=== PATIENT | female | born 1990 ===

== ENCOUNTER 2017-10-05 10:53 | Emergency (ER) | payer MEDICAID ==
[2017-10-05 11:17] VITALS: O2SAT 97
[2017-10-05 11:18] VITALS: BMI 28.7
[2017-10-05] MEDS ORDERED: Sodium Chloride 0.9% 1,000 ML IV SCH (12:15)
[2017-10-05 12:42] LABS: SQUAMOUS EPITHIAL 2 /hpf (0-5); URINE BILIRUBIN NEGATIVE (NEGATIVE); URINE BLOOD SMALL (NEGATIVE); URINE CLARITY SLIGHTY-CLOUDY (Clear); URINE COLOR YELLOW (YELLOW); URINE GLUCOSE (UA) NEG (Normal); URINE LEUKOCYTE ESTERASE NEG Leu/uL (Negative); URINE NITRATE NEGATIVE (NEGATIVE); URINE PROTEIN NEGATIVE (NEGATIVE)
--- NOTE | 2017-10-05 13:08 | ED PDOC ---
HPI: Female Pain Time Seen by Provider: 10/05/17 11:27 Chief Complaint (Nursing): Female Genitourinary Chief Complaint (Provider): Female Genitourinary History Per: Patient History/Exam Limitations: no limitations Onset/Duration Of Symptoms: Days (x 4) Current Symptoms Are (Timing): Still Present Additional Complaint(s): 26 year old female (5 weeks; A3) presents to the ED complaining of abdominal cramping, onset 4 days ago. She says it "feels like pressure". LNMP was mid-September. Her OBG is Dr. Lin. Reports urinary frequency and denies nausea, vomiting and diarrhea. PMD: none : 5 Para: 1 Miscarriage: 3 Past Medical History Reviewed: Historical Data, Nursing Documentation, Vital Signs Vital Signs: Last Vital Signs Temp 98.6 F 10/05/17 11:15 Pulse 109 H 10/05/17 11:15 Resp 17 10/05/17 11:15 BP 123/62 10/05/17 11:15 Pulse Ox 97 10/05/17 11:15 - Medical History PMH: No Chronic Diseases Denies: Depression - Surgical History Surgical History: No Surg Hx - Family History Family History: States: Unknown Family Hx - Home Medications Home Medications: Ambulatory Orders Medication Instructions Recorded No Known Home Med 08/18/12 Naproxen [Naprosyn] 500 mg PO BID PRN #15 tablet 11/25/16 traMADol [Ultram] 50 mg PO BID PRN #10 tab 11/25/16 - Allergies Allergies/Adverse Reactions: Allergies Allergy/AdvReac Type Severity Reaction Status Date / Time cashew nut Allergy Severe ANAPHYLAXIS Verified 11/25/16 09:46 Review of Systems Gastrointestinal: Positive for: Abdominal Pain (cramping). Negative for: Nausea , Vomiting, Diarrhea Genitourinary Female: Positive for: Frequency Physical Exam - Reviewed Nursing Documentation Reviewed: Yes Vital Signs Reviewed: Yes - Physical Exam Appears: Positive for: Non-toxic, No Acute Distress Head Exam: Positive for: ATRAUMATIC, NORMOCEPHALIC Skin: Positive for: Normal Color, Warm, Dry Eye Exam: Positive for: EOMI, Normal appearance, PERRL ENT: Positive for: Normal ENT Inspection Neck: Positive for: Normal, Painless ROM Cardiovascular/Chest: Positive for: Regular Rate, Rhythm Respiratory: Positive for: CNT, Normal Breath Sounds Gastrointestinal/Abdominal: Positive for: Tenderness (mild suprapubic), Guarding (mild). Negative for: Rebound, Other (McBurney's) Pelvic Exam: Positive for: External Exam Normal, Speculum Exam Normal, Other ( environmental technical officer ED RN Dotty) Back: Positive for: Normal Inspection Extremity: Positive for: Normal ROM Neurologic/Psych: Positive for: Alert, Oriented - Laboratory Results Result Diagrams: 10/05/17 12:51 10/05/17 12:51 - ECG O2 Sat by Pulse Oximetry: 97 (RA) Pulse Ox Interpretation: Normal Medical Decision Making Medical Decision Making: Time: 12:03 Rule out ectopic , early labor cramps, vs threatened Initial Plan: --Blood type and screen --BMP --Beta HCG --CBC --Chylamdia --Tylenol 650 mg PO --Normal Saline 250 mls/ hr IV --Transvag US TV SONO Creator : DR. Mix, Marck HARTMANN IMPRESSION: No visible it intrauterine gestation or products of conception. Thickened heterogeneous endometrium. Bilateral complex adnexal cysts. Time: 15:30 --patient has no abdominal pain. Reevaluation shows abdomen is soft and non tender. No vaginal bleeding in the ER. Follow up with [facility]ELOP[facility] and return to the ED in two days for repeat Beta-HCG. Scribe Attestation: Documented by Giovanna Comer, acting as a scribe for Andrew Martinez Scribe Attestation: All medical record entries made by the Scribe were at my direction and personally dictated by me. I have reviewed the chart and agree that the record accurately reflects my personal performance of the history, physical exam, medical decision making, and the department course for this patient. I have also personally directed, reviewed, and agree with the discharge instructions and disposition. Disposition - Clinical Impression Clinical Impression: , Threatened - Patient ED Disposition Is Patient to be Admitted: No - Disposition Referrals: Anna Mckeon MD [Staff Provider] - Disposition: Routine/Home Disposition Time: 15:30 Condition: IMPROVED Additional Instructions: Ms Brothers, thank you for letting us take care of you today. Your provider was Dr. Rodriguez. You were treated for Threatened . The emergency medical care you received today was directed at your acute symptoms. If you were prescribed any medication, please fill it and take as directed. It may take several days for your symptoms to resolve. Return to the Emergency Department if your symptoms worsen, do not improve, or if you have any other problems. You need repeat blood work in 2 days. Return to the ED if symptoms worsen, vaginal bleeding or any other concern. Please contact your doctor or call one of the physicians/clinics you have been referred to that are listed on the Patient Visit Information form that is included in your discharge packet. Bring any paperwork you were given at discharge with you along with any medications you are taking to your follow up visit. Our treatment cannot replace ongoing medical care by a primary care provider (PCP) outside of the emergency department. Thank you for allowing the [facility] team to be part of your care today. If you had an X-Ray or CT scan: A Radiologist will review the ED reading if any change in treatment is needed we will contact you. If you had a blood, urine, or wound culture: It will take several days for the results, if any change in treatment is needed we will contact you. If you had an STI test: It will take 48 hours for the results. Please call after 1 week if you have not heard back. Instructions: Threatened Miscarriage (ED) Forms: [employer] ([employer]), [facility] ED School/Work Excuse
[2017-10-05 13:16] LABS: BLOOD UREA NITROGEN 14 mg/dl (7-17); GFR AFRICAN-AMERICAN > 60; GFR NON-AFRICAN AMERICAN > 60
[2017-10-05 13:19] LABS: BASO # 0.1 K/uL (0.0-0.2); BASO % 0.6 % (0.0-2.0); EOS # 0.2 K/uL (0.0-0.7); EOS % 1.9 % (0.0-4.0); HEMOGLOBIN 13.2 g/dL (12.0-16.0); LYMPH % 33.4 % (20.0-40.0); MEAN CELL VOLUME 83.7 fl (81.0-99.0); MEAN CORPUSCULAR HEMOGLOBIN 27.4 pg (27.0-31.0); MEAN CORPUSCULAR HGB CONC 32.7 g/dL (33.0-37.0); MEAN PLATELET VOLUME 9.5 fl (7.2-11.7); MONO # 0.6 K/uL (0.0-0.8); MONO % 6.6 % (0.0-10.0); NEUT # 5.2 K/uL (1.8-7.0); NEUT % 57.5 % (50.0-75.0); NRBC % 0.1 % (0.0-0.0); RBC 4.8 Mil/uL (3.80-5.20); RED CELL DISTRIBUTION WIDTH 13.7 % (11.5-14.5)
[2017-10-05 15:34] VITALS: BP 124/64; PULSE 70; RESP 18; TEMP 98.2
--- NOTE | 2017-10-05 16:24 | US ---
HISTORY: approx 5 weeks preg r/o ectopic Beta HCG results: 767.82 COMPARISON: 09/02/2017 TECHNIQUE: Transvaginal only. Real -time technique with 2D, duplex and color Doppler FINDINGS: UTERUS: Measures 5 x 6.6 x 9 cm. Normal in size and appearance. No fibroid or other mass lesion seen. ENDOMETRIUM: Measures 22.9 mm in diameter. Thickened heterogeneous endometrium without focal abnormality. CERVIX: No cervical abnormality identified. RIGHT OVARY: Measures 1.7 x 3.4 x 3.4 cm. Complex cyst perhaps hemorrhagic containing debris 1.2 x 2.1 cm Normal flow. Simple cyst 2.1 x 1.1 x 2.2 cm LEFT OVARY: Measures 2.7 x 2.4 x 3.4 cm. No solid mass. Normal flow. Complex cyst 1.9 x 1.6 x 1.5 cm FREE FLUID: No significant free fluid noted. OTHER FINDINGS: None. IMPRESSION: No visible it intrauterine gestation or products of conception. Thickened heterogeneous endometrium. Bilateral complex adnexal cysts.
== END 2017-10-05 15:23 | disposition home or self-care (01) ==
LOC: H.ER 10:53
DX: O20.0 Threatened abortion (principal); Z3A.01 Less than 8 weeks gestation of pregnancy
CPT/HCPCS: 76817; 80048; 81003; 81025; 84702; 85025; 86850; 86900; 87491; 87591; 96360; 96361; 99283; J7040

== ENCOUNTER 2017-11-15 20:43 | Emergency (ER) | payer MEDICAID ==
[2017-11-15 20:44] VITALS: BMI 28.7
[2017-11-15 22:16] VITALS: BP 134/78; PULSE 80; RESP 17; TEMP 98; O2SAT 99
--- NOTE | 2017-11-15 23:45 | ED PDOC ---
HPI: Abdomen Time Seen by Provider: 11/15/17 22:19 Chief Complaint (Nursing): Abdominal Pain Chief Complaint (Provider): Pelvic Pain History Per: Patient History/Exam Limitations: no limitations Onset/Duration Of Symptoms: Hrs Additional Complaint(s): Madalyn Brothers is a 26 year old female that presents to the ED with a chief complaint of intermittent, crampy pelvic pain. Patient is currently 10 weeks and states that she was seen by her OB earlier today. During her appointment, no heart tone was detected, and she was advised to come to the ED for further evaluation. Patient denies any vaginal bleeding, dysuria, or vaginal discharge. G-5 P-1 A-3 (Patient reports 1 miscarriage and 2 elective terminations) PMD: Dr. Sawyer Samuel Past Medical History Reviewed: Historical Data, Nursing Documentation, Vital Signs Vital Signs: Last Vital Signs Temp 98 F 11/15/17 22:14 Pulse 80 11/15/17 22:14 Resp 17 11/15/17 22:14 BP 134/78 11/15/17 22:14 Pulse Ox 99 11/16/17 01:21 - Medical History PMH: No Chronic Diseases Denies: Depression - Surgical History Surgical History: No Surg Hx - Family History Family History: States: Diabetes - Social History Current smoker - smoking cessation education provided: Yes (occasional smoker) - Home Medications Home Medications: Ambulatory Orders Medication Instructions Recorded Naproxen [Naprosyn] 500 mg PO BID PRN #15 tablet 11/25/16 traMADol [Ultram] 50 mg PO BID PRN #10 tab 11/25/16 Multivit/Folic Acid/I 1 tab PO DAILY #100 tab 11/15/17 [ Plus] - Allergies Allergies/Adverse Reactions: Allergies Allergy/AdvReac Type Severity Reaction Status Date / Time cashew nut Allergy Severe ANAPHYLAXIS Verified 11/15/17 22:13 Review of Systems ROS Statement: Except As Marked, All Systems Reviewed And Found Negative Genitourinary Female: Positive for: Pelvic Pain (intermittent, crampy). Negative for: Dysuria, Vaginal Discharge, Vaginal Bleeding Physical Exam - Reviewed Nursing Documentation Reviewed: Yes Vital Signs Reviewed: Yes - Physical Exam Appears: Positive for: Well, No Acute Distress Head Exam: Positive for: ATRAUMATIC, NORMOCEPHALIC Skin: Positive for: Warm, Dry Respiratory: Negative for: Accessory Muscle Use, Respiratory Distress Gastrointestinal/Abdominal: Positive for: Normal Exam, Bowel Sounds, Soft, Tenderness (mild suprapubic TTP). Negative for: Mass, Distended, Guarding, Rebound Back: Positive for: Normal Inspection. Negative for: L CVA Tenderness, R CVA Tenderness Lymphatic: Negative for: Adenopathy Neurologic/Psych: Positive for: Alert. Negative for: Motor/Sensory Deficits - ECG O2 Sat by Pulse Oximetry: 99 (RA) Pulse Ox Interpretation: Normal Medical Decision Making Medical Decision Making: Impression: Pelvic Pain in , ddx include but not limited to Round ligament pain vs. Ectopic vs UTI vs. dehydration Plan: * US OB Transvaginal * Beta-HCG * Urine dip * Urine preg * Reevaluation EXAM: US , Transvaginal CLINICAL HISTORY: 26 years old, female; Pain; Other: Pelvis; Gestational age or lmp: 09/05/17; ; Additional info: Pelvic pain TECHNIQUE: Real-time transvaginal obstetrical ultrasound of the maternal pelvis and a first trimester with image documentation. Transvaginal imaging was used for better evaluation of the fetus and adnexa. COMPARISON: No relevant prior studies available. FINDINGS: Gestation: Single live intrauterine gestation. heart rate of 167 beats per minute. [place]-rump length of 3.7 cm, correlating with gestational age of 10 weeks 4 days. Uterus/cervix: Retroverted uterus. No subchorionic hemorrhage. No cervical dilatation or effacement. Ovaries: Normal ovaries. No adnexal masses. Free fluid: No significant free fluid. IMPRESSION: 1. Single live intrauterine gestation. 2. Incidental/non-acute findings are described above. Thank you for allowing us to participate in the care of your patient. Dictated and Authenticated by: Ash Valente MD 11/15/2017 11:49 PM Eastern Time ([place] & [place]) Scribe Attestation: Documented by Ana Guzman, acting as a scribe for Roseann Peters MD. Provider Scribe Attestation: All medical record entries made by the Scribe were at my direction and personally dictated by me. I have reviewed the chart and agree that the record accurately reflects my personal performance of the history, physical exam, medical decision making, and the department course for this patient. I have also personally directed, reviewed, and agree with the discharge instructions and disposition. Disposition - Clinical Impression Clinical Impression: Abdominal pain during Counseled Patient/Family Regarding: Studies Performed, Diagnosis, Need For Followup - Disposition Referrals: Sawyer Samuel MD [Staff Provider] - 11/16/17 Disposition: Routine/Home Disposition Time: 23:53 Condition: GOOD Additional Instructions: DRINK AT LEAST 8 GLASSES OF WATER A DAY START VITAMINS SOON POSSIBLE FOLLOW UP WITH DR URIBE TOMORROW FOR REEVALUATION Prescriptions: Multivit/Folic Acid/I [ Plus] 1 tab PO DAILY #100 tab Instructions: Abdominal Pain in (ED) Forms: [facility] ED School/Work Excuse
--- NOTE | 2017-11-15 23:50 | US ---
EXAM: US , Transvaginal CLINICAL HISTORY: 26 years old, female; Pain; Other: Pelvis; Gestational age or lmp: 09/05/17; ; Additional info: Pelvic pain TECHNIQUE: Real-time transvaginal obstetrical ultrasound of the maternal pelvis and a first trimester with image documentation. Transvaginal imaging was used for better evaluation of the fetus and adnexa. COMPARISON: No relevant prior studies available. FINDINGS: Gestation: Single live intrauterine gestation. heart rate of 167 beats per minute. [place]-rump length of 3.7 cm, correlating with gestational age of 10 weeks 4 days. Uterus/cervix: Retroverted uterus. No subchorionic hemorrhage. No cervical dilatation or effacement. Ovaries: Normal ovaries. No adnexal masses. Free fluid: No significant free fluid. IMPRESSION: 1. Single live intrauterine gestation. 2. Incidental/non-acute findings are described above.
== END 2017-11-16 00:09 | disposition home or self-care (01) ==
LOC: H.ER 20:43
DX: O26.899 Other specified pregnancy related conditions, unspecified trimester (principal)

== ENCOUNTER 2018-03-01 10:59 | Emergency (ER) | payer MEDICAID ==
[2018-03-01 10:59] VITALS: BMI 28.7
[2018-03-01 11:50] LABS: BASO % 0.2 % (0.0-2.0); EOS # 0.1 K/uL (0.0-0.7); EOS % 0.9 % (0.0-4.0); HEMOGLOBIN 12.4 g/dL (12.0-16.0); LYMPH # 1.8 K/uL (1.0-4.3); MEAN CELL VOLUME 84.6 fl (81.0-99.0); MEAN CORPUSCULAR HEMOGLOBIN 28.1 pg (27.0-31.0); MEAN CORPUSCULAR HGB CONC 33.2 g/dL (33.0-37.0); MEAN PLATELET VOLUME 9.2 fl (7.2-11.7); MONO # 0.6 K/uL (0.0-0.8); MONO % 5.3 % (0.0-10.0); NEUT # 8.6 K/uL (1.8-7.0); NEUT % 77.6 % (50.0-75.0); RBC 4.4 Mil/uL (3.80-5.20); RED CELL DISTRIBUTION WIDTH 13.6 % (11.5-14.5)
[2018-03-01 12:00] LABS: ALB/GLOB RATIO 1.1 (1.0-2.1); ALBUMIN 3.5 g/dL (3.5-5.0); ALT/SGPT 41 U/L (9-52); AST/SGOT 22 U/L (14-36); BLOOD UREA NITROGEN 10 mg/dl (7-17); GFR AFRICAN-AMERICAN > 60; GFR NON-AFRICAN AMERICAN > 60
[2018-03-01 12:01] LABS: ABG ALLEN TEST YES; ARTERIAL BLOOD GAS HCO3 26.6 mmol/L (21-28); ARTERIAL BLOOD GAS HEMOGLOBIN 12.6 g/dL (11.7-17.4); ARTERIAL BLOOD GAS O2 CAPACITY 17.3 mL/dL (16-24); ARTERIAL BLOOD GAS O2 CONTENT 17.2 ML/dL (15-23); ARTERIAL BLOOD GAS O2 SAT 99.5 % (95-98); ARTERIAL BLOOD GAS PCO2 33 mm/Hg (35-45); ARTERIAL BLOOD GAS PH 7.49 (7.35-7.45); ARTERIAL BLOOD GAS PO2 121 mm/Hg (80-100); ARTERIAL BLOOD GAS TCO2 26.1 mmol/L (22-28)
--- NOTE | 2018-03-01 12:09 | ED PDOC ---
HPI: SOB/CHF/COPD Time Seen by Provider: 03/01/18 11:23 Chief Complaint (Nursing): Shortness Of Breath Chief Complaint (Provider): Shortness Of Breath History Per: Patient History/Exam Limitations: no limitations Onset/Duration Of Symptoms: Hrs Current Symptoms Are (Timing): Still Present Associated Symptoms: Dizziness, Light-headedness. denies: Fever, Chills, Chest Pain, Leg/Calf Pain, Ankle/Leg Swelling Additional Complaint(s): 27 y/o female presents to the ED for SOB. Patient states she awoke this morning not able to catch her breath which has never happened to her before. She complains of light headedness and slight dizziness. After speaking with her OBGYN he recommended she come in to ER. Denies any associated CP, fever , chills, back pain, abdominal pain, recent illness, calf swelling or pain. P:1 Of note, patient is not on any medications besides vitamins. OBGYN: Dr. Samuel Past Medical History Reviewed: Historical Data, Nursing Documentation, Vital Signs Vital Signs: Last Vital Signs Temp 98.2 F 03/01/18 11:19 Pulse 77 03/01/18 12:19 Resp 18 03/01/18 11:19 BP 105/53 L 03/01/18 11:19 Pulse Ox 99 03/01/18 12:19 - Medical History PMH: No Chronic Diseases Denies: Depression - Surgical History Surgical History: No Surg Hx - Family History Family History: States: Unknown Family Hx, Diabetes - Social History Current smoker - smoking cessation education provided: No Ex-Smoker (has not smoked in the last 12 months): No Alcohol: None Drugs: Denies - Home Medications Home Medications: Ambulatory Orders Medication Instructions Recorded Naproxen [Naprosyn] 500 mg PO BID PRN #15 tablet 11/25/16 traMADol [Ultram] 50 mg PO BID PRN #10 tab 11/25/16 Multivit/Folic Acid/I 1 tab PO DAILY #100 tab 11/15/17 [ Plus] - Allergies Allergies/Adverse Reactions: Allergies Allergy/AdvReac Type Severity Reaction Status Date / Time cashew nut Allergy Severe ANAPHYLAXIS Verified 11/15/17 22:13 Review of Systems ROS Statement: Except As Marked, All Systems Reviewed And Found Negative Constitutional: Negative for: Fever, Chills Cardiovascular: Positive for: Light Headedness. Negative for: Chest Pain Respiratory: Positive for: Shortness of Breath Gastrointestinal: Negative for: Abdominal Pain Musculoskeletal: Negative for: Back Pain, Other (calf swelling or pain) Neurological: Positive for: Dizziness Physical Exam - Reviewed Nursing Documentation Reviewed: Yes Vital Signs Reviewed: Yes - Physical Exam Appears: Positive for: Non-toxic, No Acute Distress Head Exam: Positive for: ATRAUMATIC, NORMOCEPHALIC Cardiovascular/Chest: Positive for: Regular Rate, Rhythm. Negative for: Murmur Respiratory: Positive for: Normal Breath Sounds. Negative for: Respiratory Distress Gastrointestinal/Abdominal: Positive for: Normal Exam, Soft, Other (gravid). Negative for: Tenderness Extremity: Positive for: Normal ROM (Peterson's sign is negative). Negative for: Calf Tenderness, Swelling (calf), Other Neurologic/Psych: Positive for: Alert (awake), Oriented (x3) - Laboratory Results Result Diagrams: 03/01/18 11:46 03/01/18 11:46 - ECG ECG: Positive for: Interpreted By Me, Viewed By Me ECG Rhythm: Positive for: Sinus Rhythm (normal) Interpretation Of ECG: Normal axis, no acute changes, no right ventricular strain pattern Rate: 77 O2 Sat by Pulse Oximetry: 99 (RA) Pulse Ox Interpretation: Normal Medical Decision Making Medical Decision Making: Time: 11:17 Impression: SOB Differential Diagnosis: URI, enlarged uterus causing pressure on chest, pneumonia, pulmonary embolism (low differential) Initial Plan: * Chest X-Ray * Venous Ultrasound * ABG * CMP * Troponin I Stat * CBC Scribe Attestation: Documented by George Wilson acting as a scribe for Laurie Richards MD. Scribe Attestation: All medical record entries made by the Scribe were at my direction and personally dictated by me. I have reviewed the chart and agree that the record accurately reflects my personal performance of the history, physical exam, medical decision making, and the department course for this patient. I have also personally directed, reviewed, and agree with the discharge instructions and disposition. 2.10p - case d/w Dr. Burgess. Labs reviewed (ABG, CXR, LE dopplers, EKG) and without suggestion of acute process. He will see her tomorrow in the office. Bedrest for now. Disposition - Clinical Impression Clinical Impression: Shortness of breath - Patient ED Disposition Is Patient to be Admitted: No Doctor Will See Patient In The: Office Counseled Patient/Family Regarding: Diagnosis, Need For Followup - Disposition Referrals: Sawyer Samuel MD [Staff Provider] - 03/02/18 Disposition: Routine/Home Disposition Time: 14:10 Condition: STABLE Instructions: Shortness of Breath (Dyspnea) (DC) Forms: [employer] ([place]), [facility] ED School/Work Excuse - POA Present On Arrival: None
--- NOTE | 2018-03-01 13:20 | US ---
PROCEDURE: TheBilateral lower extremity venous duplex Doppler. HISTORY: Acute subjective shortness of breath this AM Relevant medical history: Twenty weeks . y COMPARISON: None available. TECHNIQUE: Bilateral common femoral, superficial femoral, popliteal and posterior tibial veins were evaluated. Flow was assessed with color Doppler, compressibility, assessment of phasic flow and augmentation response. FINDINGS: COMMON FEMORAL VEIN: Right CFV: Unremarkable. Left CFV: Unremarkable. SUPERFICIAL FEMORAL VEIN: Right SFV: Unremarkable. Left SFV: Unremarkable. POPLITEAL VEIN: Right Popliteal: Unremarkable. Left Popliteal: Unremarkable. POSTERIOR TIBIAL VEIN: Right PTV: Unremarkable. Left PTV: Unremarkable. OTHER FINDINGS: None. IMPRESSION: No evidence of deep venous thrombosis.
--- NOTE | 2018-03-01 13:24 | RAD ---
HISTORY: Dyspnea, recent onset. COMPARISON: No prior. TECHNIQUE: Chest PA and lateral FINDINGS: LUNGS: No active pulmonary disease. PLEURA: No significant pleural effusion identified. No pneumothorax apparent. CARDIOVASCULAR: Normal. OSSEOUS STRUCTURES: No significant abnormalities. VISUALIZED UPPER ABDOMEN: Normal. OTHER FINDINGS: None. IMPRESSION: No active disease.
[2018-03-01 14:31] VITALS: BP 116/77; PULSE 87; RESP 17; TEMP 98.4; O2SAT 100
== END 2018-03-01 14:30 | disposition home or self-care (01) ==
LOC: H.ER 10:59
DX: R06.02 Shortness of breath (principal)

== ENCOUNTER 2018-04-20 15:17 | Emergency (ER) | payer MEDICAID ==
[2018-04-20 15:39] VITALS: BMI 30.4
[2018-04-20] MEDS: Lactated Ringer's 1,000 ML IV SCH ×2 (16:25→16:30)
[2018-04-20 17:11] LABS: BASO % 0.3 % (0.0-2.0); EOS # 0.1 K/uL (0.0-0.7); EOS % 0.5 % (0.0-4.0); HEMOGLOBIN 12.7 g/dL (12.0-16.0); LYMPH # 2.2 K/uL (1.0-4.3); LYMPH % 14.8 % (20.0-40.0); MEAN CELL VOLUME 84.3 fl (81.0-99.0); MEAN CORPUSCULAR HEMOGLOBIN 28.1 pg (27.0-31.0); MEAN CORPUSCULAR HGB CONC 33.3 g/dL (33.0-37.0); MEAN PLATELET VOLUME 10.1 fl (7.2-11.7); MONO # 0.8 K/uL (0.0-0.8); MONO % 5.3 % (0.0-10.0); NEUT # 11.5 K/uL (1.8-7.0); NEUT % 79.1 % (50.0-75.0); RBC 4.51 Mil/uL (3.80-5.20); RED CELL DISTRIBUTION WIDTH 13.6 % (11.5-14.5); WHITE BLOOD COUNT 14.5 K/uL (4.8-10.8)
[2018-04-20 17:23] LABS: ALB/GLOB RATIO 1.2 (1.0-2.1); ALBUMIN 3.8 g/dL (3.5-5.0); ALT/SGPT 36 U/L (9-52); AMYLASE 68 U/L (30-110); AST/SGOT 32 U/L (14-36); BLOOD UREA NITROGEN 8 mg/dl (7-17); CALCIUM 9.1 mg/dL (8.4-10.2); GFR AFRICAN-AMERICAN > 60; GFR NON-AFRICAN AMERICAN > 60; LIPASE 50 U/L (23-300)
[2018-04-20 18:06] LABS: SQUAMOUS EPITHIAL 4 /hpf (0-5); URINE BACTERIA RARE (<OCC); URINE BILIRUBIN NEGATIVE (NEGATIVE); URINE BLOOD NEGATIVE (NEGATIVE); URINE CLARITY CLOUDY (Clear); URINE COLOR YELLOW (YELLOW); URINE GLUCOSE (UA) NEG (Normal); URINE LEUKOCYTE ESTERASE NEG Leu/uL (Negative); URINE PROTEIN NEGATIVE (NEGATIVE); URINE UROBILINOGEN 0.2-1.0 mg/dL (0.2-1.0)
[2018-04-21 02:07] VITALS: BP 100/51; PULSE 88; TEMP 98.9; O2SAT 99
== END 2018-04-20 18:47 | disposition home or self-care (01) ==
LOC: H.EROB2 15:17
DX: O21.0 Mild hyperemesis gravidarum (principal); O26.93 Pregnancy related conditions, unspecified, third trimester; E86.0 Dehydration
CPT/HCPCS: 80053; 81003; 82150; 83690; 85025; 96360; 99283; J7120

== ENCOUNTER 2018-05-31 12:18 | Emergency (ER) | payer MEDICAID ==
[2018-05-31 12:42] VITALS: BMI 32.4
--- NOTE | 2018-05-31 16:32 | OBHP ---
Datetime: 05/31/2018 14:00 IP Adm Impression: Term, intrauterine IP Admit Plan: Discharge home Admit Comment, IP Provider: HPI: Madalyn is a 27 year old at 38.2 who presents to triage for martín luation of pelvic pressure and infrequent contractions. Had an office visit with cervical exam on Tue, where she was about 2-3 cm per her report. The next evening she began having some lower pelvic c ramping/contractions every so often and they have presisted until this afternoon. She is unsure how o ften the pain is happening. Also complaining of pelvic pressure and sporadic nausea with emesis that she attributes to severe heartburn. ROS: no vaginal bleeding or LOF. Endorses good movement. Otherwise negative history 3 prior SABs x1 at 36 weeks, induced for unknown reason (patient reports the head was low in her pel vis as the reason) complications Denies PMH Denies PSH Denies Medications PNV Allergies NKDA Family History Non significant OBJECTIVE See exam section labs unavailable Assessment/Plan: 27 yo at 38.2 weeks with sporadic contractions but no cervical change since her office visit 2 days ago. At this time she may be entering latent labor but there is not indicatio n for admission to L_D, especially given her gestational age. This was discussed with patient and she is amenable to discharge home. Reviewed labor precautions and when to return to the hospital. Next f /u appt Jun 06, she will call the office if she would like to be seen sooner. Nighat Hewitt MD OB Fellow The patient was seen with resident I agree with the note FHR - Baseline A Provider: 150 Comments, ACOG Physical Exam: General: laying in bed, appears comfortable, no acute distress HEENT: mucous membranes moist, PERRL, EOMI Respiratory: nonlabored respirations CV: Regular rate ABdomne: gravid, nontender Gestation - Est Wks by US: 38.2 EGA AdmitDate IP: 38.2 IP Chief Complaint: Uterine contractions NICHD Variability Prov Fetus A: Moderate 6-25bpm NICHD Accel Fetus A IP Provider: 15X15 NICHD Decel Fetus A IP Provider: None Dilatation, Provider: 3 Effacement, Provider: 40 Station, Provider: -3 Datetime: 04/20/2018 16:06 Abdomen - PN: Normal Heart - PN: Normal General - PN: Normal IP Hx Assessment: The History has been Reviewed and is Current Vital Signs Provider: Reviewed; Within Normal Limits DTRs - PN: Normal
[2018-05-31 18:17] VITALS: BP 116/78; PULSE 95; TEMP 98.2
== END 2018-05-31 14:15 | disposition home or self-care (01) ==
LOC: H.EROB2 12:18 → H.EROB 12:51 → H.EROB2 14:15
DX: O26.93 Pregnancy related conditions, unspecified, third trimester (principal); R10.2 Pelvic and perineal pain; Z3A.38 38 weeks gestation of pregnancy

== ENCOUNTER 2018-06-03 14:29 | Emergency (ER) | payer MEDICAID ==
--- NOTE | 2018-06-03 16:55 | OBHP ---
Datetime: 06/03/2018 16:14 IP Adm Impression: Term, intrauterine ; No Active Labor IP Admit Plan: Observation/Evaluation; Discharge home Admit Comment, IP Provider: PNP: Dr. Samuel VENITA: 06/12/2018, LMP: 09/05/2017 27 y/o at 38.5 wks presenting to triage for evaluation of pelvic pressure and increasing u terine contraction. Patient came to OB-ED on 05/31 for similar symptoms and was told that she is 2-3 c m, 40% and -3. Patient went home where she continued to have pelvic pressure, cramping pain and contr actions for abot 1-2 hours. Patient unsure about frequency but feels contractions and cramping increa sing in intensity. Also reports having nausea and occasional dizziness. Patient also reports walk delbert ryday as advised by Ob. Reports tolerating diet and liquids well. OBGYNhx: 1 at 36 weeks, 3 prior SABs, +HPV, +HSV1 PMHx: None PSHx: None Meds: PNV Allergies: cashews-angioedema Family H/O: Grandfather- Esophageal Ca, Grandmother-DM Sochx: no tobacco, alcohol or drugs ROS: Denies Vaginal bleeding, LOF, CP, SOB, headache, Endorses good movement. Otherwise nega tive Information obtained form patient and EMR. Assessment/Plan: -27 y/o at 38.5 wks presenting to triage for evaluation of pelvic pressure and increasing uterine contraction. -No Active Labor - NST Reactive Plan - EFM and Sims monitor - Patient monitored initially 30 mins followed by 1 hr with EFM and Sims - 2-3 cm/40-50%/-3 station. No cervical Change. - D/C Home - Pt encuraged to continue ambulation and walking - F/U with Dr. Samuel on 06/06/18 - Labor precautions discussed Jaleel Cha, PGY1 Attending Note: Patient was seen and evaluated with the resident and I agree with the above assess ment. Extremities - PN: Normal Abdomen - PN: Normal Breast - PN: Not Done Lungs - PN: Normal Heart - PN: Normal Thyroid - PN: Not Done Neurologic - PN: Not Done HEENT - PN: Normal General - PN: Normal Presentation-Admit: Vertex FHR - Baseline A Provider: 140-150 Membranes, Provider: Intact Contraction Comments Provider: Irregular Comments, ACOG Physical Exam: Gen: well, no acute distress Cardio: RRR, S1S2 murmurs Respiratory: CTA B/L, No rales, rhonchi, wheeze Abd: BS+ Ext: nontender PVE: 2-3 cm / 40-50% / -3 station, No active vaginal bleeding Gestation - Est Wks by US: 38.5 EGA AdmitDate IP: 38.5 Vital Signs Provider: Reviewed; Within Normal Limits IP Chief Complaint: Uterine contractions; Maternal discomfort NICHD Variability Prov Fetus A: Moderate 6-25bpm NICHD Accel Fetus A IP Provider: 15X15 FHR Category Provider Fetus A: Category I NICHD Decel Fetus A IP Provider: None Dilatation, Provider: 3 Effacement, Provider: 50 Station, Provider: -3
[2018-06-03 22:24] VITALS: BP 118/82; PULSE 87; RESP 18; TEMP 98.8
== END 2018-06-03 16:50 | disposition home or self-care (01) ==
LOC: H.EROB2 14:29
DX: O26.93 Pregnancy related conditions, unspecified, third trimester (principal); R10.2 Pelvic and perineal pain; O47.1 False labor at or after 37 completed weeks of gestation; Z3A.38 38 weeks gestation of pregnancy